=== PATIENT | male | born 1985 | race Caucasian/White ===

== ENCOUNTER 2021-09-18 12:52 | Outpatient (REF) | payer OTHER, SELFPAY ==
--- NOTE | ~2021-09-18 | XR_ITS ---
EXAMINATION: XR KNEE, RIGHT CLINICAL INFORMATION: Right knee pain COMPARISON: None TECHNIQUE: Three views of the right knee. FINDINGS: No fracture or dislocation. No suprapatellar joint effusion. No appreciable degenerative changes. No focal soft tissue swelling of the anterior knee. XR/XR knee RT 3V IMPRESSION: Unremarkable radiographs of the right knee.
[2021-09-18 13:19] LABS: MANUAL DIFF FLAG NO
[2021-09-18 14:05] LABS: Basophils Percent Auto 0.4 % (0-2); Eosinophils Absolute Auto 0.1 X10*3/uL (0.0-0.4); Eosinophils Percent Auto 0.9 % (0-4); Hematocrit 47.6 % (42.0-52.0); Hemoglobin 16.3 g/dl (14.0-18.0); Imm Gran Abs Auto 0.02 X10*3/uL (0.00-0.03); Imm Gran Pct Auto 0.2 % (0.0-0.4); Lymphocytes Absolute Auto 1.9 X10*3/uL (1.2-4.9); Lymphocytes Percent Auto 20.3 % (20-40); Mean Corpuscular HGB Conc 34.2 g/dl (31.0-36.0); Mean Corpuscular Hemoglobin 30.6 pg (27.0-33.0); Mean Corpuscular Volume 89.5 fL (80.0-98.0); Mean Platelet Volume 12.5 fL (9.4-12.4); Monocytes Absolute Auto 0.7 X10*3/uL (0.1-1.2); Monocytes Percent Auto 7.3 % (2-11); Neutrophils Absolute Auto 6.7 x10*3/uL (2.0-8.3); Neutrophils Percent Auto 70.9 % (45-73); Platelet Count 206 X10*3/uL (160-400); Red Blood Count 5.32 X10*6/uL (4.60-5.80); Red Cell Distribution Width 11.9 % (11.0-16.0); White Blood Count 9.5 X10*3/uL (4.8-10.8)
[2021-09-18 14:26] LABS: Anion Gap 12 (12-20); Blood Urea Nitrogen 16 mg/dL (9-16); Calcium 9.8 mg/dL (8.4-10.2); Carbon Dioxide 29 mmol/L (22-29); Chloride 103 mmol/L (96-108); Cholesterol 236 mg/dL; Estimated Glomerular Filt Rate 60; Glucose Fasting 75 mg/dL (60-99); HDL Cholesterol 36 mg/dL; LDL Cholesterol Calculated 170 mg/dl; Potassium 4.4 mmol/L (3.3-5.1); Sodium 140 mmol/L (135-145); Triglycerides 151 mg/dL
[2021-09-18 14:28] LABS: Estimated Average Glucose 97 mg/dL
[2021-09-18 14:48] LABS: TSH reflex Free T4 1.37 uIU/mL (0.32-4.0)
[2021-09-18 15:04] LABS: Folate 16.2 ng/mL (> or = 4.0); Vitamin B12 410 pg/mL (200-900)
[2021-09-22 12:46] LABS: Vitamin D 25-OH, D2 <4 ng/mL; Vitamin D 25-OH, D3 20 ng/mL; Vitamin D 25-OH, Total 20 ng/mL (30-100)
== END 2021-09-18 12:53 | disposition home or self-care (01) ==
LOC: HO.XRAY 12:52
PROVIDERS: PCP Internal Medicine; Visit Provider Nurse Practitioner Acute Care
DX: M25.561 Pain in right knee (principal); Z76.89 Persons encountering health services in other specified circumstances; Z23 Encounter for immunization
CPT/HCPCS: 36415; 73562; 80048; 80061; 82306; 82607; 82746; 83036; 84443; 85025

== ENCOUNTER 2022-11-11 11:19 | Outpatient (REF) | payer MEDICARE, MEDICAID, SELFPAY ==
[2022-11-11 11:38] LABS: MANUAL DIFF FLAG NO
[2022-11-11 12:16] LABS: Basophils Absolute Auto 0.1 X10*3/uL (0.0-0.2); Basophils Percent Auto 1.1 % (0-2); Eosinophils Absolute Auto 0.1 X10*3/uL (0.0-0.4); Eosinophils Percent Auto 2.1 % (0-4); Hematocrit 48.2 % (42.0-52.0); Hemoglobin 16.9 g/dl (14.0-18.0); Imm Gran Abs Auto 0.02 X10*3/uL (0.00-0.03); Imm Gran Pct Auto 0.3 % (0.0-0.4); Lymphocytes Percent Auto 31.4 % (20-40); Mean Corpuscular HGB Conc 35.1 g/dl (31.0-36.0); Mean Corpuscular Hemoglobin 30.6 pg (27.0-33.0); Mean Corpuscular Volume 87.3 fL (80.0-98.0); Mean Platelet Volume 12.2 fL (9.4-12.4); Monocytes Absolute Auto 0.5 X10*3/uL (0.1-1.2); Monocytes Percent Auto 7.9 % (2-11); Neutrophils Absolute Auto 3.6 x10*3/uL (2.0-8.3); Neutrophils Percent Auto 57.2 % (45-73); Platelet Count 191 X10*3/uL (160-400); Red Blood Count 5.52 X10*6/uL (4.60-5.80); Red Cell Distribution Width 11.9 % (11.0-16.0); White Blood Count 6.2 X10*3/uL (4.8-10.8)
[2022-11-11 13:12] LABS: Alanine Aminotransferase 25 U/L (0-40); Albumin Level 4.4 g/dL (3.5-5.0); Alkaline Phosphatase 76 U/L (39-117); Anion Gap 11 (12-20); Aspartate Amino Transferase 19 U/L (5-37); Blood Urea Nitrogen 14 mg/dL (9-16); Calcium 9.6 mg/dL (8.4-10.2); Carbon Dioxide 30 mmol/L (22-29); Chloride 103 mmol/L (96-108); Cholesterol 235 mg/dL; Estimated Glomerular Filt Rate > 60; Glucose Random 87 mg/dL (60-115); HDL Cholesterol 42 mg/dL; LDL Cholesterol Calculated 173 mg/dl; Potassium 4.4 mmol/L (3.3-5.1); Sodium 140 mmol/L (135-145); Total Protein 7.2 g/dL (6.5-8.0); Triglycerides 100 mg/dL
[2022-11-11 13:17] LABS: Vitamin D 25-OH Total 31.8 ng/mL (>30)
[2022-11-17 15:29] LABS: Vitamin D 25-OH, D2 <4 ng/mL; Vitamin D 25-OH, D3 30 ng/mL; Vitamin D 25-OH, Total 30 ng/mL (30-100)
== END 2022-11-11 11:20 | disposition home or self-care (01) ==
LOC: HO.LAB 11:19
PROVIDERS: Nurse Practitioner Acute Care; PCP Internal Medicine; Visit Provider Nurse Practitioner Family
DX: Z13.29 Encounter for screening for other suspected endocrine disorder (principal); Z13.220 Encounter for screening for lipoid disorders; Z13.21 Encounter for screening for nutritional disorder; Z13.0 Encounter for screening for diseases of the blood and blood-forming organs and certain disorders involving the immune mechanism; E55.9 Vitamin D deficiency, unspecified; E78.00 Pure hypercholesterolemia, unspecified
CPT/HCPCS: 36415; 80053; 80061; 82306; 84443; 85025

== ENCOUNTER 2023-11-18 16:23 | Outpatient (AMB) | payer MEDICARE, MEDICAID, SELFPAY ==
[2023-11-18 16:27] VITALS: BP 120/84; PULSE 83; O2SAT 99; BMI 31.2
--- NOTE | 2023-11-18 16:27 | A.OFFPC_ITS ---
Vital Signs 11/18/23 16:27 Height 6 ft 3 in Weight 249 lb 8 oz BMI 31.2 BP 120/84 Blood Pressure Location Lt brachial Position Sitting Pulse 83 Pulse Source Pulse Oximeter Pulse Oximetry (%) 99 Oxygen Delivery Method Room Air Intake Visit Reasons: PE Advertising Material Distributor Required: No Accompanied by: Self / Same As Patient Allergies No Known Allergies Allergy (Verified 11/19/23 04:54) Medication List - Last Reconciled 11/19/23 by Meet Guevara MD cholecalciferol (vitamin D3) 50 mcg PO DAILY Tobacco use date assessed: 11/18/23 Dental Screening Dental Screen Date: 11/18/23 Did you have a dental visit in the last 12 months?: Yes Did you have a dental problem in the last 6 months where you did not have access to dental care?: No Was dental information given to patient?: Patient has dentist HPI PE HPI Details Patient comes in today for his annual physical examination - used to follow up with our nurse practitioners since he first established with our practice a couple of years ago and this is the first time I am seeing this patient States that other than his low back pain and right knee pain (thinks this is from an old football injury), which he's had for years, he feels okay Right knee x-rays done a couple of years ago came out normal He reportedly has (+) Hx of schizophrenia and was supposedly on an injectable antipsychotic when he first came here in 2021 but appears to be no longer on this States that he still has a counselor that he keeps in touch with and talks to regularly but has not seen a therapist or psychiatrist in a while now He also has Hx of nicotine use disorder and cannabis use but he is now living on his own in his apartment, is on disability and is no longer smoking cigarettes and cannabis or drinking alcohol (for a few years) He also served some time on probation a few years ago for allegedly assaulting his parents and was at the [facility] from 03/02/20 thru 11/22/20, then 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 Social History Housing: Apartment Alcohol intake: never Patient Tobacco Use Status: Former Tobacco user e-Cigarette/Vaping Use: Never Used Second Hand Smoke Exposure: Yes service: No Current occupational status: disabled Cognitive needs: No Hearing needs: No Vision needs: No Questionnaire PHQ-9 Over the last 2 weeks, how often have you been bothered by any of the following problems? 1. Little interest or pleasure in doing things: not at all 2. Feeling down, depressed, or hopeless: not at all 3. Trouble falling or staying asleep, or sleeping too much: not at all 4. Feeling tired or having little energy: not at all 5. Poor appetite or overeating: not at all 6. Feeling bad about yourself - or that you are a failure or have let yourself or your family down: not at all 7. Trouble concentrating on things, such as reading the newspaper or watching television: not at all 8. Moving or speaking so slowly that other people could have noticed. Or the opposite - being so fidgety or restless that you have been moving around a lot more than usual: not at all 9. Thoughts that you would be better off or of hurting yourself in some way: not at all Total score: 0 Depression Screening Interpretation: Negative Depression Screening Done: Yes 23926 - PHQ-9 Billing: Yes Source: Developed by Drs. Jhonny Delcid, Mayra Toth, Jaden Judd and colleagues, with an educational mciaela from [employer]. Thrive Questionnaire Date Thrive assessed: 11/18/23 I am a: Patient What is your living situation today?: I have a steady place to live Within the past 12 months, did the food you bought not last and you didn't have the money to get more?: Never true Within the past 12 months, did you worry whether your food would run out before you got money to buy more?: Never true Do you have trouble paying for medicines?: No Do you have trouble getting transportation to medical appointments?: No Do you have trouble paying your heating and electricity bill?: No Do you have trouble taking care of your child, family member or friend?: No Do you have trouble with day-to-day activities such as bathing, preparing meals, shopping, managing finances, etc.?: No Are you currently unemployed and looking for a job?: No Are you interested in more education?: No Please select the resources that you would like help with: None Currently or been in a relationship where the following occur: no concerns reported THRIVE Score: 0 AUDIT C Alcohol Use Questionnaire (AUDIT-C) 1. How often do you have a drink containing alcohol?: Never 3. How often do you have six or more drinks on one occasion?: Never Total Score: 0 Score Reviewed/Action Taken: Yes SYLWIA-7 AMB Questionnaire SYLWIA-7 Date SYLWIA - 7 assessed: 11/18/23 Feeling nervous, anxious, or on edge: 0 = Not at all Not being able to stop or control worryin = Not at all Worrying too much about different things: 0 = Not at all Trouble relaxin = Not at all Being so restless that it is hard to sit still: 0 = Not at all Becoming easily annoyed or irritable: 0 = Not at all Feeling afraid as if something awful might happen: 0 = Not at all Total SYLWIA-7 score (0-4 normal; 5-9 mild; 10-14 moderate; 15-21 severe): 0 Source: Developed by Drs. Jhonny Delcid, Mayra Toth, Jaden Judd and colleagues, with an educational micaela from [employer]. Review of Systems Const Denies chills, Denies fatigue, Denies fever(s), Denies headache(s), Denies malaise and Denies weakness Eyes Denies blurry vision, Denies change in vision, Denies irritation and Denies itchy eyes ENT Denies dysphagia, Denies dizziness, Denies otalgia, Denies headache(s), Denies nasal congestion, Denies neck pain, Denies odynophagia and Denies sore throat Card Denies chest pain, Denies rapid heart rate, Denies irregular heart rhythm, Denies palpitations and Denies dyspnea Resp Denies chest congestion, Denies cough, Denies dyspnea and Denies wheezing GI Denies abdominal pain, Denies bloating, Denies constipation, Denies dysphagia, Denies heartburn, Denies diarrhea, Denies nausea, Denies odynophagia and Denies vomiting Denies hematuria, Denies difficulty urinating, Denies dysuria, Denies urinary frequency and Denies urinary urgency Musc Reports back pain (over the lower back - chronic), Reports arthralgias (right knee, on and off), Denies joint swelling, Denies muscle weakness and Denies neck pain Skin/Breast Denies change in pigmentation, Denies lesions, Denies rash and Denies unusual bruising Neuro Denies dizziness, Denies headache(s), Denies paresthesias and Denies weakness Endo Denies fatigue and Denies palpitations Aller/Immun Denies itchy eyes and Denies wheezing Physical exam (Primary Care) Vital Signs: Last Vital Signs Pulse 83 11/18/23 16:27 BP 120/84 11/18/23 16:27 Pulse Ox 99 11/18/23 16:27 Oxygen Delivery Method Room Air 11/18/23 16:27 BMI result Body Mass Index 31.2 Tobacco/Smoking Status: Tobacco use Status Tobacco use date assessed 11/18/23 11/18/23 16:29 Patient Tobacco Use Status Former Tobacco user 11/18/23 16:29 e-Cigarette/Vaping Use Never Used 11/18/23 16:29 PHQ-9: PHQ-9 Score PHQ-9: Total score 0 11/18/23 16:51 Depression Screening Interpretation: Negative Thrive Assessment: Date of Thrive Assessment Date Thrive assessed 11/18/23 11/18/23 16:29 Currently or been in a relationship where the following occur: no concerns reported Const General: no acute distress, alert and awake Orientation/consciousness: patient oriented x3 HENMT Head: Yes normocephalic and Yes atraumatic Ears: external ears normal, TM's normal bilaterally and EAC's normal General nose exam: No nasal discharge present Face and sinus: Yes normal facial exam and Yes sinuses nontender Teeth and gingiva: dentition normal Throat: Yes posterior oropharynx normal and Yes tonsils normal (no TP congestion) Eyes Eyelids: Yes eyelids normal Conjunctivae: conjunctivae normal Pupils: Equal, round and reactive pupils present EOM: EOMs intact bilaterally Neck Neck: Yes no lymphadenopathy and Yes supple Thyroid: Thyroid normal Resp Auscultation: clear to auscultation bilaterally, no rales and no wheezes Cardio Rate: regular rate Rhythm: regular rhythm Heart sounds: no murmurs GI Palpation (GI): Soft to palpation, nontender and No hepatosplenomegaly present Auscultation: normal bowel sounds General: Yes no CVA tenderness Back/Spine/Pelvis Back: no CVA tenderness Thoracic/Lumbar Spine: lumbar spinal tenderness Skin Lesions: no lesions Rashes: no rashes Neuro General: patient oriented x3, moves all extremities, no focal motor deficits and CN's II-XI intact bilaterally Cranial nerves: Yes Equal, round and reactive pupils present Cognition (Neuro): normal cognition Gait exam (Neuro): Normal gait present Extrem General: Yes no clubbing, cyanosis or edema Assessment and Plan Assessment & Plan (1) Annual physical exam: Code(s): Z00.00 - Encounter for general adult medical examination without abnormal findings Plan: Check labs (2) Pure hypercholesterolemia: Code(s): E78.00 - Pure hypercholesterolemia, unspecified Plan: Advised that his cholesterol level was still elevated when last checked a year ago - total cholesterol was at 235 mg/dl and LDL cholesterol was at 173 mg/dl Reinforced low cholesterol diet - low cholesterol diet info/printout provided to patient Will recheck his fasting lipids for follow up (3) Vitamin D deficiency: Code(s): E55.9 - Vitamin D deficiency, unspecified Plan: Continue Vitamin D3 2000 units QD Will recheck his Vitamin D level for follow up (4) Low back pain: Code(s): M54.50 - Low back pain, unspecified Qualifiers: Chronicity: unspecified Back pain laterality: midline Sciatica presence: without sciatica Qualified Code(s): M54.50 - Low back pain, uns pecified Plan: Will send patient for lumbar spine x-rays for further evaluation (5) Right knee pain: Code(s): M25.561 - Pain in right knee Qualifiers: Chronicity: chronic Qualified Code(s): M25.561 - Pain in right knee; G89.29 - Other chronic pain Plan: Right knee x-rays done back in 2021 came out normal If his knee pain persists or progresses, can consider referring him to orthopedics for further evaluation and management (6) History of schizophrenia: Code(s): Z86.59 - Personal history of other mental and behavioral disorders Plan: He was reportedly on some injectable antipsychotics a few years ago but appears to be no longer on it or any psychiatric Rx States that he still has a counselor/social media specialist that he keeps in touch with and talks to regularly but he has not seen a therapist or psychiatrist in a while now Feels that he is doing okay and does not need any Rx or see psychiatry at this time (7) Obesity (BMI 30-39.9): Code(s): E66.9 - Obesity, unspecified Plan: Discussed diet/exercise as tolerated/lose weight Plan To return in 1 year for his next annual physical examination Orders: Orders Complete Blood Count Auto Diff 11/18/23 D64.9 - Anemia, unspecified, Z00.00 - Encounter for general adult medical examination without abnormal findings Comprehensive [place]. Panel Fast 11/18/23 E78.00 - Pure hypercholesterolemia, unspecified, Z00.00 - Encounter for general adult medical examination without abnormal findings Lipid Panel 11/18/23 E78.00 - Pure hypercholesterolemia, unspecified, Z00.00 - Encounter for general adult medical examination without abnormal findings UA CC w/rflx Micro + Cult 11/18/23 R30.0 - Dysuria, Z00.00 - Encounter for general adult medical examination without abnormal findings Erythrocyte Sedimentation Rate 11/18/23 M54.50 - Low back pain, unspecified TSH reflex Free T4 11/18/23 E78.00 - Pure hypercholesterolemia, unspecified, Z00.00 - Encounter for general adult medical examination without abnormal findings Vitamin D 25-OH Total 11/18/23 E55.9 - Vitamin D deficiency, unspecified, Z00.00 - Encounter for general adult medical examination without abnormal findings XR lumbar spine 2-3V 11/18/23 M54.50 - Low back pain, unspecified Coding Level of Care Code Est Pt Prev Care [id number]([id number]) Diagnoses Annual physical exam Z00.00 Pure hypercholesterolemia E78.00 Vitamin D deficiency E55.9 Midline low back pain without sciatica, unspecified chronicity M54.50 Chronicity: unspecified Back pain laterality: midline Sciatica presence: without sciatica Chronic pain of right knee M25.561; G89.29 Chronicity: chronic History of schizophrenia Z86.59 Obesity (BMI 30-39.9) E66.9
== END 2023-11-18 16:55 | disposition home or self-care (01) ==
PROVIDERS: PCP Internal Medicine; Visit Provider Internal Medicine
DX: Z00.00 Encounter for general adult medical examination without abnormal findings (principal); E78.00 Pure hypercholesterolemia, unspecified; E66.9 Obesity, unspecified; Z68.31 Body mass index [BMI] 31.0-31.9, adult; Z86.59 Personal history of other mental and behavioral disorders; E55.9 Vitamin D deficiency, unspecified; M54.50 Low back pain, unspecified; M25.561 Pain in right knee; G89.29 Other chronic pain
CPT/HCPCS: 99395

== ENCOUNTER 2024-11-22 14:19 | Outpatient (AMB) | payer MEDICARE, MEDICAID, SELFPAY ==
--- NOTE | 2024-11-22 14:21 | A.OFFPC_ITS ---
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 Accompanied by: Self / Same As Patient Allergies No Known Allergies Allergy (Verified 11/22/24 14:40) Medication List - Last Reconciled 11/22/24 by BALBIR [place] cholecalciferol (vitamin D3) 50 mcg PO DAILY Tobacco use date assessed: 11/22/24 Dental Screening Dental Screen Date: 11/22/24 Did you have a dental visit in the last 12 months?: Yes Did you have a dental problem in the last 6 months where you did not have access to dental care?: No Was dental information given to patient?: Patient has dentist HPI annual exam HPI Details Patient is a 39 year old male presenting for annual physical No recent labs. Labs ordered Dentist: little over a year Eye: up to date Snellen: Right: Left: Corrected vision: glasses STI screening: Colonoscopy: n/a Pap Smer: n/a PHQ-9: Flu: declines COVID: x2 and one booster Tdap: due, decline Diet :regular Exercise: not at this time-did in the past before Rechecked bp 126/78 + kruger, will put in an ultrasound to e valuate [facility] Medical History Obesity (BMI 30-39.9) Pure hypercholesterolemia Schizophrenia Vitamin D deficiency Surgical History No pertinent past surgical history Family History Mother Breast CA Father No problems noted. Social History Housing: Apartment Alcohol intake: never Patient Tobacco Use Status: Former Tobacco user e-Cigarette/Vaping Use: Never Used Second Hand Smoke Exposure: Yes service: No Current occupational status: disabled Cognitive needs: No Hearing needs: No Vision needs: No Questionnaire PHQ-9 Over the last 2 weeks, how often have you been bothered by any of the following problems? 1. Little interest or pleasure in doing things: not at all 2. Feeling down, depressed, or hopeless: not at all 3. Trouble falling or staying asleep, or sleeping too much: not at all 4. Feeling tired or having little energy: more than half the days 5. Poor appetite or overeating: not at all 6. Feeling bad about yourself - or that you are a failure or have let yourself or your family down: not at all 7. Trouble concentrating on things, such as reading the newspaper or watching television: not at all 8. Moving or speaking so slowly that other people could have noticed. Or the opposite - being so fidgety or restless that you have been moving around a lot more than usual: not at all 9. Thoughts that you would be better off or of hurting yourself in some way: not at all Total score: 2 Depression Screening Interpretation: Negative Depression Screening Done: Yes 73464 - PHQ-9 Billing: Yes Source: Developed by Drs. Jhonny Delcid, Mayra Toth, Jaden Judd and colleagues, with an educational micaela from [employer]. Thrive Questionnaire Date Thrive assessed: 11/22/24 I am a: Patient What is your living situation today?: I have a steady place to live Within the past 12 months, did the food you bought not last and you didn't have the money to get more?: I choose not to answer this question Within the past 12 months, did you worry whether your food would run out before you got money to buy more?: I choose not to answer this question Do you have trouble paying for medicines?: I choose not to answer this question Do you have trouble getting transportation to medical appointments?: No Do you have trouble paying your heating and electricity bill?: No Do you have trouble taking care of your child, family member or friend?: No Do you have trouble with day-to-day activities such as bathing, preparing meals, shopping, managing finances, etc.?: No Are you currently unemployed and looking for a job?: I choose not to answer this question Are you interested in more education?: I choose not to answer this question Please select the resources that you would like help with: None Currently or been in a relationship where the following occur: I choose not to answer THRIVE Score: 0 AUDIT C Alcohol Use Questionnaire (AUDIT-C) 1. How often do you have a drink containing alcohol?: 2-3 times a week 2. How many drinks containing alcohol do you have on a typical day when you are drinking?: 3 or 4 3. How often do you have six or more drinks on one occasion?: Never Total Score: 4 Score Reviewed/Action Taken: Yes SYLWIA-7 AMB Questionnaire SYLWIA-7 Date SYLWIA - 7 assessed: 11/22/24 Feeling nervous, anxious, or on edge: 0 = Not at all Not being able to stop or control worryin = Not at all Worrying too much about different things: 0 = Not at all Trouble relaxin = Several days Being so restless that it is hard to sit still: 0 = Not at all Becoming easily annoyed or irritable: 1 = Several days Feeling afraid as if something awful might happen: 0 = Not at all Total SYLWIA-7 score (0-4 normal; 5-9 mild; 10-14 moderate; 15-21 severe): 2 Source: Developed by Drs. Jhonny Delcid, Mayra Toth, Jaden Judd and colleagues, with an educational micaela from [employer]. SYLWIA-7 Assessment Billing SYLWIA-7 Assessment Tool: SYLWIA-7 Assessment 13250 Review of Systems Const Denies headache(s) Eyes Denies loss of vision ENT Denies vertigo, Denies dizziness, Denies headache(s) and Denies sore throat Card Denies chest pain, Denies leg edema and Denies lightheadedness Resp Denies cough, Denies hemoptysis and Denies wheezing GI Denies abdominal pain, Denies melena, Denies constipation, Denies diarrhea and Denies vomiting Denies dysuria, Denies urinary frequency and Denies urinary urgency Musc Reports back pain (chronic lower back pain), Reports arthralgias (right knee and back pain, but he works through it), Denies joint swelling, Denies numbness and Denies tingling Neuro Denies Abnormal speech present, Denies behavioral changes, Denies vertigo, Denies dizziness, Denies headache(s), Denies loss of vision, Denies memory loss, Denies numbness and Denies tingling Psych Denies anxiety, Denies behavioral changes, Denies depression, Denies memory loss and Denies panic attacks Ge/Lymph Denies easy bleeding and Denies easy bruising Aller/Immun Denies wheezing Physical exam (Primary Care) Vital Signs: Last Vital Signs Pulse 89 11/22/24 14:22 BP 130/100 H 11/22/24 14:22 Pulse Ox 94 11/22/24 14:22 Oxygen Delivery Method Room Air 11/22/24 14:22 BMI result Body Mass Index 32.1 Tobacco/Smoking Status: Tobacco use Status Tobacco use date assessed 11/22/24 11/22/24 14:28 Patient Tobacco Use Status Former Tobacco user 11/22/24 14:28 e-Cigarette/Vaping Use Never Used 11/22/24 14:28 PHQ-9: PHQ-9 Score PHQ-9: Total score 2 11/22/24 15:06 Depression Screening Interpretation: Negative Thrive Assessment: Date of Thrive Assessment Date Thrive assessed 11/22/24 11/22/24 14:28 Currently or been in a relationship where the following occur: I choose not to answer Const General: healthy appearing, no acute distress, alert and awake Nutritional Appearance: well nourished Orientation/consciousness: oriented to person, oriented to place and oriented to time HENMT Ears: TM's normal bilaterally General nose exam: Normal nasal mucous membranes and turbinates present Eyes Conjunctivae: conjunctivae normal Sclerae: sclerae normal Pupils: Equal, round and reactive pupils present Neck Neck: Yes no lymphadenopathy and Yes no JVD Thyroid: Thyroid normal Carotids: no bruits Resp Effort & Inspection: normal respiratory effort and not tachypneic Auscultation: no crackles, no rales, no rhonchi and no wheezes Cardio Rate: regular rate Rhythm: regular rhythm Heart sounds: no murmurs and normal S1 and S2 GI Palpation (GI): Soft to palpation, Tenderness to palpation present (GI) in the RUQ and Kruger's sign positive, no hepatomegaly and no splenomegaly Auscultation: normal bowel sounds General: Yes no CVA tenderness Back/Spine/Pelvis Back: no CVA tenderness Skin General skin exam: no rashes or lesions noted and dry skin Neuro General: oriented to person, oriented to place and oriented to time Cranial nerves: Yes Equal, round and reactive pupils present Speech: No Abnormal speech present Gait exam (Neuro): Normal gait present Motor exam (neuro): no tremor noted Extrem General: Yes full ROM, Yes capillary refill normal, Yes no pedal edema and Yes no calf tenderness Right upper extremity: full ROM and normal capillary refill Left upper extremity: full ROM and normal capillary refill Right lower extremity: full ROM; no edema Left lower extremity: full ROM; no edema Psych Mental Status: mental status grossly normal Speech and movement: Normal speech and movement present Affect: normal affect Attitude: cooperative Thought process: Normal thought process present Coding Level of Care Code Est Pt Prev Care 18-39y(97180) Diagnoses Annual physical exam Z00.00 Obesity (BMI 30-39.9) E66.9 Pure hypercholesterolemia E78.00 Schizophrenia, unspecified type F20.9 Schizophrenia type: unspecified Vitamin D deficiency E55.9 Midline low back pain without sciatica, unspecified chronicity M54.50 Chronicity: unspecified Back pain laterality: midline Sciatica presence: without sciatica Prehypertension R03.0 Positive Kruger Sign R19.8 Chronic pain of right knee M25.561; G89.29 Chronicity: chronic Additional Codes SYLWIA-7 Assessment Billing - SYLWIA-7 Assessment Tool: SYLWIA-7 Assessment 65735 ([id number]) PHQ-9 - 01512 - PHQ-9 Billing: Yes ([id number]) Time Spent (min) 37 Assessment & Plan Assessment & Plan (1) Annual physical exam: Code(s): Z00.00 - Encounter for general adult medical examination without abnormal findings Category: Medical Plan: Preventative guidelines reviewed with the patient Labs ordered (2) Obesity (BMI 30-39.9): Code(s): E66.9 - Obesity, unspecified Category: Medical Plan: Diet/exercise discussed in detail Encouraged to exercise for at least 30 minutes a day/5 days a week Healthy eating discussed. Encouraged to eat fruits/vegetables, protein- fish/baked chicken, and to avoid salty/fried foods, sweets, caffeine and carbohydrates. Encouraged to increase water intake 6-8 glasses a day (3) Pure hypercholesterolemia: Code(s): E78.00 - Pure hypercholesterolemia, unspecified Category: Medical Plan: Reinforced low-cholesterol diet and activity as tolerated Labs ordered (4) Schizophrenia: Code(s): F20.9 - Schizophrenia, unspecified Category: Medical Qualifiers: Schizophrenia type: unspecified Qualified Code(s): F20.9 - Schizophrenia, unspecified Plan: He is currently he is not on any treatment or seeing a therapist Reports that he has been doing well Denies SI/HI (5) Vitamin D deficiency: Code(s): E55.9 - Vitamin D deficiency, unspecified Category: Medical Plan: Continue cholecalciferol 50 mcg daily (6) Low back pain: Code(s): M54.50 - Low back pain, unspecified Category: Medical Qualifiers: Chronicity: unspecified Back pain laterality: midline Sciatica presence: without sciatica Qualified Code(s): M54.50 - Low back pain, unspecified Plan: Patient reports that he has on and off and he learned to cope with it He is not interested in any treatments (7) Prehypertension: Code(s): R03.0 - Elevated blood-pressure reading, without diagnosis of hypertension Category: Medical Plan: His 1st blood pressure was elevated. Rechecked blood pressure normalized after patient relaxed a moment (8) Positive Kruger Sign: Code(s): R19.8 - Other specified symptoms and signs involving the digestive system and abdomen Category: Medical Plan: Abdominal ultrasound ordered (9) Right knee pain: Code(s): M25.561 - Pain in right knee Category: Medical Qualifiers: Chronicity: chronic Qualified Code(s): M25.561 - Pain in right knee; G89.29 - Other chronic pain Plan: Reports wearing tear from playing sports. Reports that the pain isn't severe to the point of needing treatments Plan Patient to get labs and ultrasound done as soon as possible Orders: Orders Comprehensive [place]. Panel Fast 11/22/24 E55.9 - Vitamin D deficiency, unspecified, E66.9 - Obesity, unspecified, E78.00 - Pure hypercholesterolemia, unspecified, F20.9 - Schizophrenia, unspecified, G89.29 - Other chronic pain, M25.561 - Pain in right knee, M54.50 - Low back pain, unspecified, Z00.00 - Encounter for general adult medical examination without abnormal findings TSH reflex Free T4 11/22/24 E55.9 - Vitamin D deficiency, unspecified, E66.9 - Obesity, unspecified, E78.00 - Pure hypercholesterolemia, unspecified, F20.9 - Schizophrenia, unspecified, G89.29 - Other chronic pain, M25.561 - Pain in right knee, M54.50 - Low back pain, unspecified, Z00.00 - Encounter for general adult medical examination without abnormal findings US abdomen limited 11/22/24 K81.9 - Cholecystitis, unspecified, R19.8 - Other specified symptoms and signs involving the digestive system and abdomen Complete Blood Count Auto Diff 11/22/24 E55.9 - Vitamin D deficiency, unspecified, E66.9 - Obesity, unspecified, E78.00 - Pure hypercholesterolemia, unspecified, F20.9 - Schizophrenia, unspecified, G89.29 - Other chronic pain, M25.561 - Pain in right knee, M54.50 - Low back pain, unspecified, Z00.00 - Encounter for general adult medical examination without abnormal findings Lipid Panel 11/22/24 E55.9 - Vitamin D deficiency, unspecified, E66.9 - Obesity, unspecified, E78.00 - Pure hypercholesterolemia, unspecified, F20.9 - Schizophrenia, unspecified, G89.29 - Other chronic pain, M25.561 - Pain in right knee, M54.50 - Low back pain, unspecified, Z00.00 - Encounter for general adult medical examination without abnormal findings UA CC w/rflx Micro + Cult 11/22/24 E55.9 - Vitamin D deficiency, unspecified, E66.9 - Obesity, unspecified, E78.00 - Pure hypercholesterolemia, unspecified, F20.9 - Schizophrenia, unspecified, G89.29 - Other chronic pain, M25.561 - Pain in right knee, M54.50 - Low back pain, unspecified, Z00.00 - Encounter for general adult medical examination without abnormal findings Vitamin D 25-OH Total 11/22/24 E55.9 - Vitamin D deficiency, unspecified, E66.9 - Obesity, unspecified, E78.00 - Pure hypercholesterolemia, unspecified, F20.9 - Schizophrenia, unspecified, G89.29 - Other chronic pain, M25.561 - Pain in right knee, M54.50 - Low back pain, unspecified, Z00.00 - Encounter for general adult medical examination without abnormal findings Glucose Fasting 11/22/24 E55.9 - Vitamin D deficiency, unspecified, E66.9 - Obesity, unspecified, E78.00 - Pure hypercholesterolemia, unspecified, F20.9 - Schizophrenia, unspecified, G89.29 - Other chronic pain, M25.561 - Pain in right knee, M54.50 - Low back pain, unspecified, Z00.00 - Encounter for general adult medical examination without abnormal findings
[2024-11-22 14:22] VITALS: BP 130/100; PULSE 89; O2SAT 94; BMI 32.1
[2024-11-22 14:25] VITALS: BP 126/78
== END 2024-11-22 15:09 | disposition home or self-care (01) ==
PROVIDERS: PCP Internal Medicine
DX: Z00.00 Encounter for general adult medical examination without abnormal findings (principal); E66.9 Obesity, unspecified; Z68.32 Body mass index [BMI] 32.0-32.9, adult; F20.9 Schizophrenia, unspecified; E78.00 Pure hypercholesterolemia, unspecified; E55.9 Vitamin D deficiency, unspecified; M54.50 Low back pain, unspecified; R03.0 Elevated blood-pressure reading, without diagnosis of hypertension; R19.8 Other specified symptoms and signs involving the digestive system and abdomen; M25.561 Pain in right knee; G89.29 Other chronic pain

== ENCOUNTER → 2024-11-22 14:19 | Outpatient (BNVA) | payer MEDICARE, MEDICAID, SELFPAY | PROVIDERS: PCP Internal Medicine | DX: Z00.00 Encounter for general adult medical examination without abnormal findings (principal); E78.00 Pure hypercholesterolemia, unspecified; F20.9 Schizophrenia, unspecified; E55.9 Vitamin D deficiency, unspecified; M54.50 Low back pain, unspecified; R03.0 Elevated blood-pressure reading, without diagnosis of hypertension; R19.8 Other specified symptoms and signs involving the digestive system and abdomen; M25.561 Pain in right knee; G89.29 Other chronic pain; E66.9 Obesity, unspecified; Z68.32 Body mass index [BMI] 32.0-32.9, adult; Z71.3 Dietary counseling and surveillance | CPT/HCPCS: 96127; 99395 ==

== ENCOUNTER 2025-05-31 10:35 | Inpatient (IN) | payer MEDICARE, MEDICAID, SELFPAY ==
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
[2025-05-31 11:27] VITALS: BP 144/80; PULSE 73; RESP 18; TEMP 36.3; O2SAT 98; BMI 31.3
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
[2025-05-31 11:44] LABS: MANUAL DIFF FLAG NO
[2025-05-31 11:46] LABS: Hematocrit 46.6 % (42.0-52.0); Hemoglobin 16.2 g/dl (14.0-18.0); Imm Gran Abs Auto 0.08 X10*3/uL (0.00-0.03); Imm Gran Pct Auto 0.7 % (0.0-0.4); Lymphocytes Absolute Auto 2.2 X10*3/uL (1.2-4.9); Mean Corpuscular HGB Conc 34.8 g/dl (31.0-36.0); Mean Corpuscular Hemoglobin 30.9 pg (27.0-33.0); Mean Corpuscular Volume 88.9 fL (80.0-98.0); NRBC Abs Auto 0.000 X10*3/uL (0.0-0.012); NRBC Pct Auto 0.0 /100WBC (0.0-0.2); Platelet Count 269 X10*3/uL (160-400); Red Blood Count 5.24 X10*6/uL (4.60-5.80); White Blood Count 11.7 X10*3/uL (4.8-10.8)
[2025-05-31 12:03] LABS: Alanine Aminotransferase 59 U/L (0-40); Albumin Level 4.4 g/dL (3.5-5.0); Alkaline Phosphatase 109 U/L (39-117); Anion Gap 11 (12-20); Aspartate Amino Transferase 41 U/L (5-37); Blood Urea Nitrogen 21 mg/dL (9-16); Calcium 10.2 mg/dL (8.4-10.2); Carbon Dioxide 26 mmol/L (22-29); Chloride 105 mmol/L (96-108); Creatinine Clr Calc Pharmacy 100.4; Estimated Glomerular Filt Rate 58; Potassium 4.2 mmol/L (3.3-5.1); Sodium 138 mmol/L (135-145); Total Protein 8.1 g/dL (6.5-8.0)
[2025-05-31 15:11] VITALS: BP 135/93; PULSE 83; RESP 16; TEMP 36.2; O2SAT 97
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
[2025-05-31] MEDS: Diphth,Pertus(ACell),Tet Adult 0.5 ML SYRINGE IM (15:57)
--- NOTE | 2025-05-31 16:23 | PHA.MEDREC ---
Addendum entered by Sylwia Nettles RPh 05/31/25 16:43: [facility] reviewed Original Note: Pharmacy Consult ? Medication Reconciliation Pharmacy has completed the medication reconciliation. Patient states he is not on any medications.
[2025-05-31] MEDS: vancomycin/NS 2,000 MG/500 ML PLAST..BAG 250 MG IV (16:51)
[2025-05-31] MEDS: 0.9 % Sodium Chloride Flush 3 ML SYRINGE IVFLUSH (16:52)
[2025-05-31 17:00] VITALS: BP 141/84; PULSE 63; RESP 16; TEMP 36.1; O2SAT 96
--- NOTE | 2025-05-31 17:59 | PHA.PROG ---
Admission Date/Time: May 31, 2025 15:48 Indication: OTHER Weight in k.7 kg Adjusted body weight in Kg: [place] body weight in Kg: Obesity Dosing Indication % IBW: Serum Creatinine - Last 168 Hours 05/31/25 11:39 Creatinine 1.37 Estimated CrCl and GFR - Last 168 Hours 05/31/25 11:39 Estim Creat Clear Calc 100.4 Estimated GFR 58 Vancomycin Loading Dose: 2000 MG Current Vancomycin Dosing Regimen: 1250 MG Q12H Vancomycin Monitoring using AUC goal of 400 - 600 range with trough as surrogate marker: WKQ=[id number] TROUGH=18.5 Date and Time for next Vancomycin Level to be drawn: 06/01/25 @1500 Pharmacist Comments on Vancomycin Plan: Vancomycin dosing will take advantage of Rog[employer] as a clinical decision support tool that uses Bayesian modeling to calculate individual patient's pharmacokinetic parameters and forecast the patient's drug concentration time course with the target goal AUC 24 range of 400 - 600 mg/L/hr.
[2025-05-31 18:00] VITALS: BP 140/80; PULSE 60; RESP 16; TEMP 36.1; O2SAT 96
[2025-05-31 20:00] VITALS: BP 144/77; PULSE 66; RESP 18; TEMP 36.8; O2SAT 99
[2025-06-01] MEDS: 0.9 % Sodium Chloride Flush 3 ML SYRINGE IVFLUSH ×2 (05:07→08:22)
[2025-06-01 05:10] VITALS: BP 140/84; PULSE 57; RESP 18; TEMP 36.2; O2SAT 96
[2025-06-01 05:53] LABS: Creatinine Clr Calc Pharmacy 108.3; Estimated Glomerular Filt Rate > 60
--- NOTE | 2025-06-01 07:55 | PC.NURSE ---
patient a&ox3, rr equal/non labored, lungs clear, rt hand swollen/red/warm to touch, denies pain at this time. vitals previously stable, call manley within reach, plan of care ongoing.
--- NOTE | 2025-06-01 08:09 | MHC.EDTECH ---
pt is a self and was giving oral hygiene supplies and ate 100% breakfast.
--- NOTE | 2025-06-01 08:10 | MHC.EDTECH ---
pt was offered to wash up and pt stated he susan lt me know when he wants to wash up
--- NOTE | 2025-06-01 08:11 | PC.NURSE ---
ortho consult currently at bedside, stated to patient he will order occupational therapy and feels his had has improved in the last 24 hours.
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
--- NOTE | 2025-06-01 09:42 | MHC.CM.PN ---
CM met with Patient at bedside, in ED Over. Patient lives alone in an apartment and home/self care is the goal.CM has initiated and will follow for dc planning. PCP is Dr. Meet Guevara and Patient plans to walk home at time of dc.
[2025-06-01 11:00] VITALS: BP 140/84; PULSE 57; RESP 18; TEMP 36.2; O2SAT 96
--- NOTE | 2025-06-01 11:06 | PC.NURSE ---
while this nurse and the tech were busy, this patient left the overflow unit- V[employer] camera watching the door called to notify us, upon notification this nurse went out to look out the back doors to see if the patient had gone out which he was not seen, additionally he was not seen walking down the main hallway either. Security was notified with patient description, charge was notified as well as Dr. William.
--- NOTE | 2025-06-01 11:29 | PC.NURSE ---
Per charge nurse Gita, an radiologic technologist mammogram saw patient walking down [address] with hospital top on, [place] [employer] and hospital security were notified by charge nurse. Additionally, Dr. William requested a nursing channel process supervisor be notified but there is no channel process supervisor until 4pm which is Jeannine Carlos- Jeannine was working in the ED when this occurred and this nurse asked her who should be notified of this instance on days she took the information and stated it could be written that she is aware as she is channel process supervisor later this afternoon. Dr. William was notified Jeannine is aware as well.
--- NOTE | 2025-06-01 12:05 | PC.NURSE ---
Laurie Lopez was notified who is also covering for Jaylene PIMENTEL Director
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
--- NOTE | 2025-06-01 12:31 | PC.NURSE ---
This RN was alerted by primary RN that patient had eloped from the hospital with their IV still in place at approx 11am, security called, another staff member arriving to work saw pt walking down the street towards [facility]. Security aware. This RN contacted PD around 11am to give description of pt to see if they could bring him back to ED for removal of IV. Primary RN aware, equipment operator warehouse aware along with primary MD. At this time, this RN has not heard back from PD. Primary RN contacted by pt program with more information in regards to pt.
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
--- NOTE | 2025-06-01 12:47 | PC.NURSE ---
Nelda RN from [facility] and social problems specialist from [facility] went to patients apartment- he was not found in the apartment, they stated they will continue to attempt to locate the patient
--- NOTE | 2025-06-01 14:03 | MHC.CM.PN ---
Patient has left AMA.
--- NOTE | 2025-06-01 14:15 | PC.NURSE ---
discharge order was placed for pt to be taken out of the system. Phone call from ED WR to state patient was back in the WR checking back in, will notify dr. workman as well.
== END 2025-06-01 14:18 | disposition left against medical advice (07) | DRG 603 ==
LOC: HO.ED 15:25 → HO.EDOVER 15:58 → HO.S3 06-01 11:57 → HO.EDOVER 06-01 12:01
PROVIDERS: Physician Assistant Medical; Admitting Provider Nurse Practitioner Acute Care; Emergency Provider Emergency Medicine; PCP Internal Medicine; Visit Provider Internal Medicine
DX: L03.113 Cellulitis of right upper limb (principal); F20.9 Schizophrenia, unspecified; N18.30 Chronic kidney disease, stage 3 unspecified; Y04.2XXA Assault by strike against or bumped into by another person, initial encounter; Z79.899 Other long term (current) drug therapy
CPT/HCPCS: 36415; 73130; 80048; 80076; 82565; 83605; 85025; 85652; 86140; 87040; 90715; 97165; 99285; J1650; J2543; J3373; J3374

== ENCOUNTER → 2025-05-31 11:34 | Outpatient (BNV) | payer MEDICARE, MEDICAID, SELFPAY | PROVIDERS: PCP Internal Medicine; Visit Provider Radiology Diagnostic Radiology | DX: M79.641 Pain in right hand (principal) | CPT/HCPCS: 73130 ==

== ENCOUNTER → 2025-05-31 15:48 | Outpatient (BNV) | payer MEDICARE, MEDICAID, SELFPAY | PROVIDERS: Admitting Provider Nurse Practitioner Acute Care; Emergency Provider Emergency Medicine; PCP Internal Medicine; Visit Provider Nurse Practitioner Acute Care | DX: L03.119 Cellulitis of unspecified part of limb (principal) | CPT/HCPCS: 99223; 99239 ==

== ENCOUNTER → 2025-05-31 15:48 | Outpatient (BNV) | payer MEDICARE, MEDICAID, SELFPAY | PROVIDERS: Admitting Provider Nurse Practitioner Acute Care; Emergency Provider Emergency Medicine; PCP Internal Medicine | DX: L03.119 Cellulitis of unspecified part of limb (principal) | CPT/HCPCS: 99222 ==

== ENCOUNTER 2025-06-01 12:57 | Inpatient (IN) | payer MEDICARE, MEDICAID, SELFPAY ==
[2025-06-01 13:17] VITALS: BP 129/82; PULSE 92; RESP 16; TEMP 36.5; O2SAT 97; BMI 31.3
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
[2025-06-01 13:43] LABS: MANUAL DIFF FLAG NO
[2025-06-01 13:46] LABS: Hematocrit 46.2 % (42.0-52.0); Hemoglobin 16.4 g/dl (14.0-18.0); Imm Gran Abs Auto 0.05 X10*3/uL (0.00-0.03); Imm Gran Pct Auto 0.5 % (0.0-0.4); Lymphocytes Absolute Auto 1.9 X10*3/uL (1.2-4.9); Mean Corpuscular HGB Conc 35.5 g/dl (31.0-36.0); Mean Corpuscular Hemoglobin 31.2 pg (27.0-33.0); Mean Corpuscular Volume 88.0 fL (80.0-98.0); NRBC Abs Auto 0.000 X10*3/uL (0.0-0.012); NRBC Pct Auto 0.0 /100WBC (0.0-0.2); Platelet Count 251 X10*3/uL (160-400); Red Blood Count 5.25 X10*6/uL (4.60-5.80); White Blood Count 10.8 X10*3/uL (4.8-10.8)
[2025-06-01 14:02] LABS: Alanine Aminotransferase 52 U/L (0-40); Albumin Level 4.2 g/dL (3.5-5.0); Alkaline Phosphatase 104 U/L (39-117); Anion Gap 12 (12-20); Aspartate Amino Transferase 32 U/L (5-37); Blood Urea Nitrogen 22 mg/dL (9-16); Calcium 9.0 mg/dL (8.4-10.2); Carbon Dioxide 25 mmol/L (22-29); Chloride 105 mmol/L (96-108); Creatinine Clr Calc Pharmacy 105.0; Estimated Glomerular Filt Rate > 60; Potassium 3.8 mmol/L (3.3-5.1); Sodium 138 mmol/L (135-145); Total Protein 7.8 g/dL (6.5-8.0)
--- NOTE | 2025-06-01 15:15 | PHA.MEDREC ---
Addendum entered by Carlos Manuel Conrad PharmD 06/01/25 15:17: reviewed Original Note: Pharmacy Consult ? Medication Reconciliation Pharmacy has completed the medication reconciliation. Patient left AMA yesterday utilized discharge summary to confirm med list. patient is not taking any medications.
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
--- NOTE | 2025-06-01 18:38 | PHA.PROG ---
Admission Date/Time: June 01, 2025 15:30 Indication: SKIN Weight in k.7 kg Adjusted body weight in Kg: [place] body weight in Kg: Obesity Dosing Indication % IBW: Serum Creatinine - Last 168 Hours 06/01/25 13:38 Creatinine 1.31 Estimated CrCl and GFR - Last 168 Hours 06/01/25 13:38 Estim Creat Clear Calc 105.0 Estimated GFR > 60 Vancomycin Loading Dose: 2000 MG (pt left ama then came back, under [id number]) Current Vancomycin Dosing Regimen: 1000 mg q12h Vancomycin Monitoring using AUC goal of 400 - 600 range with trough as surrogate marker: xpz=355 trough=14.2 Date and Time for next Vancomycin Level to be drawn: 06/02/25 @0600 Pharmacist Comments on Vancomycin Plan: Patient received loading dose 2000 mg on 05/31/26 and 1250 mg @0505 06/01/25 then left ama..then came back and was given 1500 mg @1559 06/01/25. Dose of 1000 mg q12h is pended post trough level scheduled for @0600 06/02/25. Vancomycin dosing will take advantage of [employer] as a clinical decision support tool that uses Bayesian modeling to calculate individual patient's pharmacokinetic parameters and forecast the patient's drug concentration time course with the target goal AUC 24 range of 400 - 600 mg/L/hr.
[2025-06-01 19:29] VITALS: BP 127/79; PULSE 63; RESP 12; TEMP 36.5; O2SAT 98
[2025-06-01 20:00] VITALS: BP 140/85; PULSE 74; RESP 18; TEMP 36.1; O2SAT 98
[2025-06-02 04:00] VITALS: BP 120/79; PULSE 70; RESP 16; TEMP 36.2; O2SAT 98
[2025-06-02 06:31] LABS: Creatinine Clr Calc Pharmacy 110.9; Estimated Glomerular Filt Rate > 60
--- NOTE | 2025-06-02 06:46 | HE.PHANOTE ---
RE CHARLES DOSING LEVEL CAME IN AT 9.6. DOSING HAS BEEN INCONSISTENT PT LEFT AMA AND MISSED PROPER TIMING ON DOSES. MANDA LEVEL AFTER 3 DOSES GIVEN. WITH CURRENT LEVEL AND RENAL FUNCTION IT SEEMS AUC SHOULD BE 484. CONTINUE DAILY RENAL MONITORING AND RECHECK TROUGH 06/03 @0600 TO ENSURE SAFETY AND EFFICACY.
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
[2025-06-02] MEDS: 0.9 % Sodium Chloride Flush 3 ML SYRINGE IVFLUSH (07:44)
[2025-06-02 11:29] VITALS: BP 135/87; PULSE 61; RESP 18; TEMP 36.2; O2SAT 98
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
[2025-06-02] MEDS: Lactated Ringers 1,000 ML 100 ML IVCONT (14:12)
[2025-06-02 15:11] VITALS: BP 131/82; PULSE 71; RESP 17; TEMP 36.4; O2SAT 97
--- NOTE | 2025-06-02 16:11 | MHC.CM.PN ---
PT REPORTS HE LIVES ALONE AND IS INDEPENDENT WITH CARE HE SAYS HE IS CONNECTED TO [facility] FOR MH SERVICES AND HOPE FOR WEIR FOR RECOVERY PCP: [facility] DECLINES A HCP IMM DELIVERED DCP: HOME, RESUME OUTPATIENT SERVICES PT SAYS HE WILL WALK AT DC, AWARE SHUTTLE IS ALSO AVAILABLE
[2025-06-02 18:57] VITALS: BP 132/82; PULSE 67; RESP 18; TEMP 36.4; O2SAT 97
[2025-06-03] MEDS: Lactated Ringers 1,000 ML 100 ML IVCONT (00:29)
[2025-06-03 03:26] VITALS: BP 119/68; PULSE 66; RESP 18; TEMP 36.6; O2SAT 95
[2025-06-03 06:39] LABS: Creatinine Clr Calc Pharmacy 115.6; Estimated Glomerular Filt Rate > 60
[2025-06-03 07:16] VITALS: BP 121/71; PULSE 62; RESP 16; TEMP 37; O2SAT 95
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
--- NOTE | 2025-06-03 16:09 | MHC.CM.PN ---
PT TO [facility] HOME TODAY WITH NO NEW SERVICES VIA PRIVATE TRANSPORT
== END 2025-06-03 12:27 | disposition home or self-care (01) | DRG 603 ==
LOC: HO.ED 15:34 → HO.EDOVER 15:40 → HO.S3 19:15
PROVIDERS: Physician Assistant; Admitting Provider Internal Medicine; Emergency Provider Emergency Medicine; Visit Provider Internal Medicine
DX: L03.113 Cellulitis of right upper limb (principal); F20.9 Schizophrenia, unspecified; Y04.2XXA Assault by strike against or bumped into by another person, initial encounter; N18.30 Chronic kidney disease, stage 3 unspecified; R74.01 Elevation of levels of liver transaminase levels; Z87.891 Personal history of nicotine dependence
CPT/HCPCS: 36415; 80053; 80202; 82565; 85025; 85652; 86140; 97165; 99221; 99285; J1650; J3374; J7120

== ENCOUNTER → 2025-06-01 15:30 | Outpatient (BNV) | payer MEDICARE, MEDICAID, SELFPAY | PROVIDERS: Admitting Provider Internal Medicine; Emergency Provider Emergency Medicine | DX: L03.113 Cellulitis of right upper limb (principal) | CPT/HCPCS: 99232 ==

== ENCOUNTER → 2025-06-01 15:30 | Outpatient (BNV) | payer MEDICARE, MEDICAID, SELFPAY | PROVIDERS: Admitting Provider Internal Medicine; Emergency Provider Emergency Medicine; Visit Provider Internal Medicine | DX: L03.113 Cellulitis of right upper limb (principal) | CPT/HCPCS: 99222; 99232; 99239; 99499 ==

== ENCOUNTER 2025-06-13 16:14 | Outpatient (AMB) | payer MEDICARE, MEDICAID, SELFPAY ==
[2025-06-13 16:35] VITALS: BP 130/100; PULSE 67; O2SAT 98; BMI 30.7
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
== END 2025-06-13 17:24 | disposition home or self-care (01) ==
LOC: HO.HMCH 16:15
PROVIDERS: PCP Internal Medicine; Visit Provider Internal Medicine
DX: E78.00 Pure hypercholesterolemia, unspecified (principal); L03.113 Cellulitis of right upper limb; Z68.30 Body mass index [BMI] 30.0-30.9, adult; E66.9 Obesity, unspecified; R79.89 Other specified abnormal findings of blood chemistry; E55.9 Vitamin D deficiency, unspecified; R03.0 Elevated blood-pressure reading, without diagnosis of hypertension; M54.50 Low back pain, unspecified

== ENCOUNTER → 2025-06-13 16:14 | Outpatient (BNVA) | payer MEDICARE, MEDICAID, SELFPAY | PROVIDERS: PCP Internal Medicine; Visit Provider Internal Medicine | DX: M79.641 Pain in right hand (principal); L03.113 Cellulitis of right upper limb; E78.00 Pure hypercholesterolemia, unspecified; R79.89 Other specified abnormal findings of blood chemistry; E55.9 Vitamin D deficiency, unspecified; R03.0 Elevated blood-pressure reading, without diagnosis of hypertension; M54.50 Low back pain, unspecified; E66.9 Obesity, unspecified; Z68.30 Body mass index [BMI] 30.0-30.9, adult | CPT/HCPCS: 99495 ==